=== PATIENT | male | born 1960 | race Hispanic/Latino ===

== ENCOUNTER 2023-01-07 21:40 | Emergency (ER) | payer OTHER, SELFPAY ==
[2023-01-07 21:42] VITALS: BP 131/81; PULSE 60; RESP 22; TEMP 36.5; O2SAT 99; BMI 29.0
--- NOTE | 2023-01-07 22:12 | EX.ED.DYSGE1 ---
HPI History of Present Illness Chief Complaint: Syncope Informant: patient Narrative Narrative: Healthy 62-year-old male states he was taking a nap and he got up and felt sick to his stomach, he went to the bathroom, vomited in the sink, and then went to the toilet to vomit more and apparently passed out. Patient cannot remember if he was sitting on the toilet before he passed down or if he was trying to vomit into it. He denies any injury from falling. His son lives with him but did not witness this, he was in a different room. The patient denies any symptoms right now just feels tired. He denies any headache, abdominal pain, chest pain, shortness of breath, fevers recently, focal neurologic symptoms, vision changes. No recent travel out of the area. He denies any suspicious food intake or raw fish or meats. No known sick contacts with similar symptoms. Takes no medicines and does not do any drugs. PFSH PFSH Medical History no medical history no medical history Home Medications ondansetron 4 mg disintegrating tablet 8 mg PO Q8H PRN PRN Nausea #14 tabs 01/07/23 [Rx Last Taken Unknown] Allergy/AdvReac Type Severity Reaction Status Date / Time No Known Allergies Allergy Verified 01/07/23 21:48 Surgical History no surgical history no surgical history Social History Smoking Status: Never smoker ROS ROS ED Constitutional Constitutional ED: Denies chills or fever(s) Eyes Eyes: Denies change in vision or diplopia ENT ENT ED: Denies rhinorrhea or sore throat Cardiovascular Cardiovascular: Reports lightheadedness and syncope; Denies chest pain or palpitations Respiratory/Chest Respiratory/Chest: Denies cough or dyspnea Gastrointestinal Gastrointestinal: Reports nausea and vomiting; Denies abdominal pain or diarrhea Genitourinary Genitourinary ED: Denies dysuria or hematuria Musculoskeletal Musculoskeletal: Denies back pain or neck pain Integumentary Denies abscess or rash Neurologic Neurologic: Denies headache(s), paresthesias or weakness Psychiatric Psychiatric: Denies anxiety or suicidal thoughts EXAM Physical Exam Const Vital Signs: 01/07/23 21:42 01/07/23 22:40 Temperature 97.7 F L Temperature Source Oral Pulse Rate 60 Respiratory Rate 22 H Respiratory Effort Normal Respiratory Pattern Normal Blood Pressure 131/81 H Blood Pressure Mean 97 Pulse Ox 99 Oxygen Delivery Method Room Air Positive well nourished and well developed General Appearance ED: well developed and NAD HEENT Reports moist mucous membranes normocephalic and atraumatic Eyes PERRL and EOMs intact bilaterally Neck full ROM and supple Resp normal respiratory effort and clear to auscultation bilaterally Cardio regular rate, regular rhythm and no murmurs Rate: bradycardia GI non-tender and non-distended Auscultation: normoactive bowel sounds Palpation: soft Back/Spine no CVA tenderness General Back: other FROM Extremity normal to inspection General Extremety ED: Negative for edema, pulses abnormal or tenderness General Extremity: Negative for edema or pulses abnormal Neuro oriented x3, CN's II-XII intact bilaterally and no sensory deficits noted Sensorium / Orientation: awake and alert Motor Exam: strength 5/5 throughout Skin no rashes or lesions noted and no wounds MDM MDM MDM Narrative Medical decision making narrative: Patient has very benign exam. EMS was called immediately afterwards, patient was hypotensive in the 80s but upon arrival here he is normotensive and his vital signs are normal. Given the vital signs, borderline bradycardia with normal EKG no signs of an AV block, healthy male who was vomiting right before this happened, very likely vasovagal in mechanism. Labs were obtained in addition to a troponin, those were normal. He was given a liter of fluid, Zofran, he felt much better, ambulatory without lightheadedness or syncope/symptoms, supportive care with a prescription for Zofran just in case and we discussed reasons to return he is comfortable with that plan. History & Record Review Additional record(s) reviewed:: No prior records Lab Data Attestation: I reviewed the patient's lab results. Labs: Laboratory Results - last 24 hr 01/07/23 01/07/23 21:45 21:45 WBC 10.7 RBC 5.30 Hgb 15.6 Hct 46.1 MCV 87.0 MCH 29.4 MCHC 33.8 RDW Std Deviation 38.6 RDW Coeff of Deandre 12.4 Plt Count 227 MPV 10.6 Immature Gran % (Auto) 0.500 Neut % (Auto) 68.9 Lymph % (Auto) 21.1 Hendricks % (Auto) 6.0 Eos % (Auto) 3.2 Baso % (Auto) 0.3 Absolute Neuts (auto) 7.4 Absolute Lymphs (auto) 2.26 Nucleated RBC % 0 Sodium 141 Potassium 3.7 Chloride 103 Carbon Dioxide 29.0 Anion Gap 9 BUN 22 H Creatinine 0.99 Estim Creat Clear Calc 78.36 Est GFR (MDRD) Af Amer 99 Est GFR (MDRD) Non-Af 82 BUN/Creatinine Ratio 22.3 H Glucose 130 H Calcium 9.3 Troponin I High Sens 6 Rhythm Strip Rhythm Strip: Sinus Rhythm Rate: 55 Ectopy: None EKG Initial EKG: Attestation: I personally reviewed and interpreted this EKG as follows: Interpretation: Sinus Rhythm (Borderline bradycardia. Otherwise normal EKG.) and No Acute Injury Pattern Prior: No Prior Discharge Plan Triage Chief Complaint: Syncope Other Complaint: Nausea/Vomiting ED Provider: Sb Solis Dx/Rx/DC Orders Clinical Impression: Vomiting, Vasovagal syncope Instructions: ED Fainting, Vagal Reaction, ED Vomiting (Adult) Prescriptions: New ondansetron [ondansetron] 4 mg tablet,disintegrating 8 mg PO Q8H PRN PRN (Reason: Nausea) Qty: 14 0RF Primary Care Provider: Care Physician,No Primary Referrals: Zach Blount MD [Med Staff - [employer] Set Up Operator] - As Needed Disposition Disposition: Home, Self Care
[2023-01-07] MEDS: 0.9% Normal Saline 1,000 ML 999 ML IV (22:35)
[2023-01-07] MEDS: Ondansetron 4 MG/2 ML Vial IV (22:35)
[2023-01-07 22:47] LABS: Absolute Lymphocyte Count 2.26 X10^3/uL (0.83-4.51); Absolute Neutrophil Count 7.4 X10^3/uL (2.0-7.7); Basophil# 0.03 X10^3/uL; Basophil% 0.3 % (0-1); Eosinophil# 0.34 X10^3/uL; Eosinophils% 3.2 % (0-5); Hematocrit 46.1 % (40-54); Hemoglobin 15.6 g/dL (13.0-16.5); Lymphocyte # 2.26 X10^3/ul (0.83-4.51); Lymphocyte % 21.1 % (19-41); Mean Corp Hgb Conc 33.8 g/dL (32-36); Mean Corpuscular Hgb 29.4 pg (27.0-32.0); Mean Platelet Vol. 10.6 fl (6.2-12.0); Monocyte# 0.64 X10^3/uL; NRBC Flagged by Analyzer 0 % (0-5); Neutrophil # 7.38 X10^3/uL (2.7-7.7); Neutrophil % 68.9 % (47-70); Platelet Count 227 K/mm3 (150-450); RBC Distribution Width CV 12.4 % (11.6-14.6); RBC Distribution Width SD 38.6 fl (35.1-43.9); White Blood Count 10.7 K/mm3 (4.4-11.0)
[2023-01-07 23:16] LABS: Anion Gap 9 (5-15); BUN 22 mg/dL (7-18); BUN/Creat Ratio 22.3 RATIO (10-20); Calcium,Total 9.3 mg/dL (8.5-10.1); Chloride 103 mmol/L (98-107); Creatinine, Serum 0.99 mg/dL (0.70-1.30); EST Glomerular Filtration Rate 82 mL/min (>60); Est Glom Filt Rate - Afr Amer 99 mL/min (>60); Estimated Creatinine Clearance 78.36 ml/min; Glucose 130 mg/dL (74-106); Potassium 3.7 mmol/L (3.5-5.1); Sodium Level 141 mmol/L (136-145); Troponin-I HS 6 pg/mL (3.0-78.0)
[2023-01-07 23:52] VITALS: O2SAT 99
== END 2023-01-07 23:53 | disposition home or self-care (01) ==
LOC: ED 22:19
PROVIDERS: Emergency Provider Emergency Medicine; Visit Provider Emergency Medicine
DX: R55 Syncope and collapse (principal); R11.2 Nausea with vomiting, unspecified
CPT/HCPCS: 80048; 84484; 85025; 93005; 96361; 96374; 99285; J7030; J2405